=== PATIENT | female | born 1980 | race Two or more races ===

== ENCOUNTER 2017-04-20 20:50 | Emergency (ER) | payer BC, OTHER ==
--- NOTE | 2017-04-20 21:05 | UC ---
Lower Extremity/Ankle HPI - HPI Summary HPI Summary: left leg pain x 2 hrs + injury to the left griggs , landed on a rollerskate wheel + pain and swelling of the left griggs painful to touch , walking well - History of Current Complaint Stated Complaint: LEFT LEG INJURY Time Seen by Provider: 04/20/17 21:00 Hx Obtained From: Patient Onset/Duration: Sudden Onset, Lasting Hours - 2, Still Present Severity Initially: Moderate Severity Currently: Moderate Aggravating Factor(s): Standing, Ambulation Alleviating Factor(s): Rest Able to Bear Weight: Yes PMH/Surg Hx/FS Hx/Imm Hx Previously Healthy: Yes - Family History Known Family History: Negative: Diabetes Review of Systems Constitutional: Negative Skin: Negative Eyes: Negative ENT: Negative Respiratory: Negative All Other Systems Reviewed And Are Negative: Yes Physical Exam Triage Information Reviewed: Yes Appearance: Well-Appearing, No Pain Distress, Well-Nourished Vital Signs Reviewed: Yes Eyes: Positive: Conjunctiva Clear ENT: Positive: Normal ENT inspection, Hearing grossly normal, Pharynx normal Neck exam: Normal Respiratory: Positive: Chest non-tender, Lungs clear, Normal breath sounds Cardiovascular Exam: Normal Cardiovascular: Positive: RRR, No Murmur, Pulses Normal Musculoskeletal: Positive: Other: - left lower leg/ griggs area: + swelling, erythema, tender to touch , normal left ankle , normal left knee Lower Extremity Course/Dx - Differential Dx/Diagnosis Provider Diagnoses: contusion left lower leg Discharge - Discharge Plan Condition: Stable Disposition: HOME Patient Education Materials: Contusion in Adults (ED) Referrals: Idania Patricia MD [Primary Care Provider] - 7 Days Additional Instructions: contusion of left lower leg cont. with rest, ice, elevation , take ibuprofen as needed for pain follow up in 1 week , sooner if increase in pain , swelling
[2017-04-20 21:07] VITALS: BP 113/64
== END 2017-04-20 21:26 | disposition home or self-care (01) ==
LOC: UCCORT 20:50
DX: S80.12XA Contusion of left lower leg, initial encounter (principal); W18.30XA Fall on same level, unspecified, initial encounter; Y93.9 Activity, unspecified; Y92.9 Unspecified place or not applicable; Y99.9 Unspecified external cause status
CPT/HCPCS: 99201; G0463